=== PATIENT | male | born 1945 | race African-American/Black ===

== ENCOUNTER 2017-07-11 07:36 | Observation (INO) | payer MEDICARE ==
[~2017-07-11] VITALS: Ht 185.4 cm; Wt 89.8 kg
[~2017-07-11 07:36] MED LIST: ASPI-1159 PO; CARVEDILOL PO; LISI-604 PO; SIMV10TA6 PO
[2017-07-11 08:05] LABS: BASOPHILS % 0.6 % (0.0-2.0); EOSINOPHILS % 3.3 % (0.0-5.0); HEMATOCRIT. 44.6 % (42.0-52.0); HEMOGLOBIN. 15.4 g/dL (14.0-18.0); LYMPHOCYTES % 26.6 % (20.0-50.0); MEAN CORPUSCULAR HEMOGLOBIN 30.6 pg (28.0-32.0); MEAN CORPUSCULAR VOLUME 88.7 fL (80.0-94.0); MEAN PLATELET VOLUME 9.4 fl (7.4-10.4); MONOCYTES % 6.8 % (2.0-8.0); NEUTROPHILS % 62.7 % (40.0-76.0); PLATELET 184 x1000/uL (130-400); RED BLOOD CELL COUNT 5.02 mill/uL (4.7-6.1); RED CELL DISTRIBUTION WIDTH 13.5 % (11.6-14.6)
[2017-07-11 08:22] LABS: CARBON DIOXIDE 31 mEq/L (21-32); CHLORIDE 105 mEq/L (98-107); TROPONIN I < 0.02 ng/mL (0.00-0.04)
[2017-07-11] MEDS ORDERED: ASPIRIN 325MG EC TABLET PO ONE (09:00)
[2017-07-11 09:21] LABS: INR 1.1; PROTHROMBIN TIME 11.2 sec (9.4-11.6)
[2017-07-11 13:50] VITALS: BP 189/91
[2017-07-11] MEDS ORDERED: INFLUENZA VIRUS VACCINE 0.5ML SYR IM ONE (14:00)
[2017-07-11] MEDS ORDERED: CLONIDINE 0.1MG TABLET PO NR (14:45)
[2017-07-11] MEDS ORDERED: CLOPIDOGREL (15:03)
[2017-07-11 16:00] VITALS: BP 167/76
[2017-07-11 20:00] VITALS: BP 146/68
[2017-07-11] MEDS: ASPIRIN 325MG EC TABLET PO SCH (20:19)
[2017-07-11] MEDS: LOSARTAN POTASSIUM 50 MG TABLET PO SCH (20:19)
[2017-07-11] MEDS ORDERED: ATORVASTATIN CALCIUM 20MG TABLET PO SCH (21:00)
[2017-07-11] MEDS: CARVEDILOL 6.25 MG TABLET PO SCH (21:43)
[2017-07-11] MEDS: AMLODIPINE 5MG TABLET PO SCH (21:43)
[2017-07-12] VITALS: BP 130/78
[2017-07-12 04:00] VITALS: BP 121/55
[2017-07-12 07:20] LABS: BASOPHILS % 0.5 % (0.0-2.0); EOSINOPHILS % 4.8 % (0.0-5.0); HEMATOCRIT. 41.1 % (42.0-52.0); HEMOGLOBIN. 13.6 g/dL (14.0-18.0); MEAN CORPUSCULAR HEMOGLOBIN 29.4 pg (28.0-32.0); MEAN CORPUSCULAR VOLUME 88.5 fL (80.0-94.0); MEAN PLATELET VOLUME 9.5 fl (7.4-10.4); MONOCYTES % 11.2 % (2.0-8.0); NEUTROPHILS % 52.5 % (40.0-76.0); PLATELET 172 x1000/uL (130-400); RED BLOOD CELL COUNT 4.64 mill/uL (4.7-6.1); RED CELL DISTRIBUTION WIDTH 13.1 % (11.6-14.6)
[2017-07-12 08:00] VITALS: BP 129/61
[2017-07-12] MEDS ORDERED: ASPIRIN 81MG EC TABLET PO SCH (09:00)
[2017-07-12] MEDS ORDERED: CLOPIDOGREL 75MG TABLET PO SCH (09:00)
[2017-07-12] MEDS: CARVEDILOL 6.25 MG TABLET PO SCH (09:00)
[2017-07-12] MEDS: ASPIRIN 325MG EC TABLET PO SCH (09:14)
[2017-07-12] MEDS: AMLODIPINE 5MG TABLET PO SCH (09:14)
[2017-07-12] MEDS: LOSARTAN POTASSIUM 50 MG TABLET PO SCH (09:14)
[2017-07-12 10:28] LABS: CARBON DIOXIDE 27 mEq/L (21-32); CHLORIDE 105 mEq/L (98-107); LDL CHOLESTEROL 86 mg/dL (5-100)
[2017-07-12 10:38] LABS: HDL CHOLESTEROL 53 mg/dL (40-59); TROPONIN I < 0.02 ng/mL (0.00-0.04)
[2017-07-12 12:00] VITALS: BP 139/68
[2017-07-12 14:55] VITALS: BP 139/68
[2017-07-12] MEDS ORDERED: CARVEDILOL 3.125 MG TABLET PO SCH (21:00)
== END 2017-07-12 15:25 | disposition home or self-care (01) ==
LOC: ER 08:11 → INTOOBSV 09:01 → 8WST 09:01 → EDBEDREQTM 09:08 → EDBEDREQ 09:08 → ENRESERV 12:19
PROVIDERS: ADMIT Internal Medicine; ATTEND Internal Medicine
DX: G45.9 Transient cerebral ischemic attack, unspecified (principal); I16.0 Hypertensive urgency; I10 Essential (primary) hypertension; E78.00 Pure hypercholesterolemia, unspecified; I25.10 Atherosclerotic heart disease of native coronary artery without angina pectoris; Z23 Encounter for immunization
CPT/HCPCS: 36415; 70450; 70551; 71010; 80048; 80053; 80061; 83880; 84443; 84484; 85025; 85610; 90471; 93005; 93306; 93880; 99285; G0378; 90686

== ENCOUNTER 2019-01-30 14:26 | Emergency (ER) | payer MEDICARE ==
[~2019-01-30] VITALS: Ht 167.6 cm; Wt 110.0 kg
[~2019-01-30 14:26] MED LIST changes: -ASPI-1159 PO; +CLOPIDOGREL
[2019-01-30] MEDS ORDERED: METOCLOPRAMIDE HCL 10MG/2ML VIAL IV ONE (15:00)
[2019-01-30] MEDS ORDERED: CLONIDINE 0.2MG TABLET PO ONE (15:00)
[2019-01-30] MEDS ORDERED: DIPHENHYDRAMINE 50MG/ML VIAL IV ONE (15:00)
[2019-01-30 15:41] LABS: BASOPHILS % 0.5 % (0.0-2.0); EOSINOPHILS % 4.8 % (0.0-5.0); HEMATOCRIT. 45.3 % (42.0-52.0); HEMOGLOBIN. 14.8 g/dL (14.0-18.0); LYMPHOCYTES % 29.9 % (20.0-50.0); MEAN CORPUSCULAR HEMOGLOBIN 29.3 pg (28.0-32.0); MEAN CORPUSCULAR VOLUME 89.4 fL (80.0-94.0); MEAN PLATELET VOLUME 9.2 fl (7.4-10.4); MONOCYTES % 9.6 % (2.0-8.0); NEUTROPHILS % 55.2 % (40.0-76.0); PLATELET 196 x1000/uL (130-400); RED BLOOD CELL COUNT 5.06 mill/uL (4.7-6.1); RED CELL DISTRIBUTION WIDTH 12.7 % (11.6-14.6)
[2019-01-30 15:48] LABS: CHLORIDE 104 mEq/L (98-107)
[2019-01-30] MEDS ORDERED: HYDRALAZINE 20MG/ML VIAL IV ONE (16:45)
[2019-01-30 17:10] VITALS: BP 133/51
== END 2019-01-30 17:29 | disposition home or self-care (01) ==
LOC: ER 14:26
DX: I10 Essential (primary) hypertension (principal); R51 Headache; E78.00 Pure hypercholesterolemia, unspecified; I25.810 Atherosclerosis of coronary artery bypass graft(s) without angina pectoris; Z98.890 Other specified postprocedural states; Z95.1 Presence of aortocoronary bypass graft; Z79.899 Other long term (current) drug therapy
CPT/HCPCS: 36415; 70450; 71045; 80053; 84484; 85025; 93005; 96374; 96375; 99284; J0360; J1200; J2765

== ENCOUNTER 2019-01-30 21:46 | Emergency (ER) | payer MEDICARE ==
[~2019-01-30] VITALS: Ht 182.9 cm; Wt 107.0 kg
[2019-01-30] MEDS ORDERED: KETOROLAC 30MG/ML VIAL IV NR (22:22)
[2019-01-31 00:11] LABS: BASOPHILS % 0.5 % (0.0-2.0); EOSINOPHILS % 4.1 % (0.0-5.0); HEMATOCRIT. 41.9 % (42.0-52.0); HEMOGLOBIN. 14.4 g/dL (14.0-18.0); MEAN CORPUSCULAR HEMOGLOBIN 30.2 pg (28.0-32.0); MEAN CORPUSCULAR VOLUME 88.1 fL (80.0-94.0); MEAN PLATELET VOLUME 8.6 fl (7.4-10.4); NEUTROPHILS % 56.4 % (40.0-76.0); PLATELET 197 x1000/uL (130-400); RED BLOOD CELL COUNT 4.75 mill/uL (4.7-6.1); RED CELL DISTRIBUTION WIDTH 13.2 % (11.6-14.6)
[2019-01-31 00:17] LABS: CHLORIDE 106 mEq/L (98-107)
[2019-01-31 01:44] VITALS: BP 145/77
== END 2019-01-31 01:45 | disposition home or self-care (01) ==
LOC: ER 21:46
DX: R06.02 Shortness of breath (principal); R51 Headache; E78.00 Pure hypercholesterolemia, unspecified; I10 Essential (primary) hypertension; I25.810 Atherosclerosis of coronary artery bypass graft(s) without angina pectoris; Z79.899 Other long term (current) drug therapy; Z95.1 Presence of aortocoronary bypass graft
CPT/HCPCS: 36415; 83880; 84484; 93005; 99284

== ENCOUNTER 2021-12-16 12:34 | Inpatient (IN) | payer MEDICARE ==
[~2021-12-16] VITALS: Ht 180.3 cm; Wt 102.8 kg
[~2021-12-16 12:34] MED LIST changes: -LISI-604 PO; +LISI20TA31 PO; -SIMV10TA6 PO; +SIMV10TA97 PO
[2021-12-16] MEDS ORDERED: SODIUM CHLORIDE 0.9% 1,000 ML IV ONE (12:45)
[2021-12-16] MEDS ORDERED: ONDANSETRON HCL 4MG/2ML INJ IV ONE (12:45)
[2021-12-16 14:28] LABS: *AMPHETAMINES SCREEN URINE NEGATIVE (NEGATIVE); *BARBITURATES SCREEN URINE NEGATIVE (NEGATIVE); *BENZODIAZEPINES SCREEN URINE NEGATIVE (NEGATIVE); *COCAINE SCREEN URINE NEGATIVE (NEGATIVE); METHADONE URINE SCREEN NEGATIVE (NEGATIVE)
[2021-12-16 14:29] LABS: CANNABINOID URINE SCREEN NEGATIVE (NEGATIVE); OPIATES URINE SCREEN NEGATIVE (NEGATIVE); PHENCYCLIDINE URINE SCREEN NEGATIVE (NEGATIVE)
[2021-12-16 14:55] LABS: BASOPHILS % 0.5 % (0.0-2.0); EOSINOPHILS % 1.2 % (0.0-5.0); HEMATOCRIT. 42.9 % (42.0-52.0); HEMOGLOBIN. 14.1 g/dL (14.0-18.0); LYMPHOCYTES % 13.9 % (20.0-50.0); MEAN CORPUSCULAR HEMOGLOBIN 29.5 pg (28.0-32.0); MEAN CORPUSCULAR VOLUME 89.5 fL (80.0-94.0); MEAN PLATELET VOLUME 8.5 fl (7.4-10.4); MONOCYTES % 4.9 % (2.0-8.0); NEUTROPHILS % 79.5 % (40.0-76.0); PLATELET 214 x1000/uL (130-400); RED BLOOD CELL COUNT 4.79 mill/uL (4.7-6.1); RED CELL DISTRIBUTION WIDTH 13.4 % (11.6-14.6)
[2021-12-16 15:02] LABS: CHLORIDE 107 mEq/L (98-107)
[2021-12-16 15:06] LABS: ETHANOL BLOOD < 10 mg/dL
[2021-12-16 15:07] LABS: INR 1.1; PARTIAL THROMBOPLASTIN TIME 26.9 sec (23.4-31.0); PROTHROMBIN TIME 11.3 sec (9.6-11.0)
[2021-12-16] MEDS ORDERED: IOHEXOL-350 100 ML BOTTLE ONE (15:12)
[2021-12-16] MEDS ORDERED: NA PHOS,M-B/NA PHOS,DI-BA ENEMA 118ML PR PRN (15:15)
[2021-12-16] MEDS ORDERED: ACETAMINOPHEN 325MG TABLET PO PRN (15:15)
[2021-12-16] MEDS ORDERED: ACETAMINOPHEN 650MG SUPP PR PRN (15:15)
[2021-12-16] MEDS ORDERED: LORAZEPAM 0.5MG TABLET PO PRN (15:15)
[2021-12-16] MEDS ORDERED: GUAIFENESIN 200MG/10ML SUGAR FREE UDC PO PRN (15:15)
[2021-12-16] MEDS ORDERED: DOCUSATE SODIUM 100MG CAPSULE PO PRN (15:15)
[2021-12-16] MEDS ORDERED: MAGNESIUM/ALUMINUM HYDROXIDE/SIMETHICONE 30ML UDC PO PRN (15:15)
[2021-12-16] MEDS ORDERED: AMLODIPINE 5MG TABLET PO SCH (15:15)
[2021-12-16] MEDS ORDERED: HYDROCODONE/ACETAMINOPHEN 5/325MG TABLET PO PRN (15:15)
[2021-12-16] MEDS ORDERED: IPRATROPIUM/ALBUTEROL 0.5-3(2.5)MG/3ML NEB NEB PRN (15:15)
[2021-12-16] MEDS ORDERED: ASPIRIN 325MG EC TABLET PO ONE (15:30)
[2021-12-16] MEDS ORDERED: CLONIDINE 0.1MG TABLET PO PRN (18:00)
[2021-12-16] MEDS: ONDANSETRON HCL 4MG/2ML INJ IV PRN (19:23)
[2021-12-16] MEDS: LOSARTAN POTASSIUM 25 MG TABLET PO SCH (19:34)
[2021-12-16 21:35] VITALS: BP 175/66
[2021-12-16] MEDS: HYDRALAZINE 20MG/ML VIAL IV PRN (22:25)
[2021-12-16] MEDS: FAMOTIDINE 20MG TABLET PO SCH (22:25)
[2021-12-16] MEDS: ATORVASTATIN CALCIUM 10MG TABLET PO SCH (22:25)
[2021-12-17] VITALS: BP 155/78
[2021-12-17] MEDS: ONDANSETRON HCL 4MG/2ML INJ IV PRN (00:36)
[2021-12-17 00:56] LABS: CREATINE KINASE 166 IU/L (39-308)
[2021-12-17 00:57] LABS: CREATINE KINASE MB FRACTION < 1.0 ng/mL (0.5-3.6)
[2021-12-17] MEDS ORDERED: ONDANSETRON HCL 4MG/2ML INJ IV PRN (01:15)
[2021-12-17] MEDS ORDERED: ATROPINE SULFATE 1MG/10ML SYR IV ONE (01:15)
[2021-12-17] MEDS ORDERED: ATROPINE SULFATE 1MG/10ML SYR IV NR (01:30)
[2021-12-17] MEDS ORDERED: ATROPINE SULFATE 0.1MG/ML 10ML DISP.SYRIN IV ONE (01:30)
[2021-12-17] MEDS ORDERED: FURO-151 PO (02:42)
[2021-12-17] MEDS ORDERED: KETO15CR2 TP (02:42)
[2021-12-17] MEDS ORDERED: LISI20TA31 PO (02:42)
[2021-12-17] MEDS ORDERED: TAMS-11 PO (02:42)
[2021-12-17] MEDS ORDERED: AMLO5TAB88 PO (02:42)
[2021-12-17] MEDS ORDERED: DORZ10DR8 LEFTEYE (02:42)
[2021-12-17] MEDS ORDERED: SIMV-43 PO (02:42)
[2021-12-17] MEDS ORDERED: TERB250T51 PO (02:42)
[2021-12-17] MEDS ORDERED: MULT-622 PO (02:42)
[2021-12-17] MEDS ORDERED: CARV12.545 PO (02:42)
[2021-12-17] MEDS ORDERED: CHOL400D7 PO (02:42)
[2021-12-17] MEDS ORDERED: ASPI-1497 PO (02:42)
[2021-12-17] MEDS ORDERED: MYCOC15 TP (02:42)
[2021-12-17 04:00] VITALS: BP 147/70
[2021-12-17 07:48] LABS: BASOPHILS % 0.2 % (0.0-2.0); HEMATOCRIT. 42.8 % (42.0-52.0); HEMOGLOBIN. 14.3 g/dL (14.0-18.0); LYMPHOCYTES % 11.4 % (20.0-50.0); MEAN CORPUSCULAR HEMOGLOBIN 29.2 pg (28.0-32.0); MEAN CORPUSCULAR VOLUME 87.6 fL (80.0-94.0); MEAN PLATELET VOLUME 9.3 fl (7.4-10.4); MONOCYTES % 7.2 % (2.0-8.0); NEUTROPHILS % 81.2 % (40.0-76.0); PLATELET 229 x1000/uL (130-400); RED BLOOD CELL COUNT 4.88 mill/uL (4.7-6.1); RED CELL DISTRIBUTION WIDTH 13.5 % (11.6-14.6)
[2021-12-17 07:55] LABS: CHLORIDE 104 mEq/L (98-107)
[2021-12-17 08:16] LABS: CREATINE KINASE 152 IU/L (39-308)
[2021-12-17 08:48] LABS: CLARITY URINE CLEAR (CLEAR); COLOR URINE YELLOW (YELLOW); KETONES URINE NEGATIVE (NEGATIVE); LEUKOCYTE ESTERASE URINE NEGATIVE (NEGATIVE); NITRITE URINE NEGATIVE (NEGATIVE); OCCULT BLOOD URINE NEGATIVE (NEGATIVE); PH URINE 7.5 (4.5-8.0); PROTEIN URINE NEGATIVE (NEGATIVE); SPECIFIC GRAVITY URINE 1.041 (1.005-1.030); UROBILINOGEN URINE 0.2 E.U./dL (0.2-1.0)
[2021-12-17] MEDS: ASPIRIN 81MG EC TABLET PO SCH (09:58)
[2021-12-17] MEDS: LOSARTAN POTASSIUM 25 MG TABLET PO SCH (09:59)
[2021-12-17] MEDS: AMLODIPINE 5MG TABLET PO SCH ×2 (09:59→16:04)
[2021-12-17] MEDS ORDERED: POTASSIUM CHLORIDE 20MEQ TABLET SR PO SCH (10:00)
[2021-12-17 12:00] VITALS: BP 179/64
[2021-12-17] MEDS ORDERED: MECLIZINE 25MG TABLET PO PRN (13:30)
[2021-12-17] MEDS ORDERED: MECLIZINE 25MG TABLET PO SCH (14:00)
[2021-12-17 16:00] VITALS: BP 192/70
[2021-12-17 17:43] VITALS: BP_SYST 124; BP_SYST 86; BP_DIAS 55; BP_DIAS 78
[2021-12-17 20:00] VITALS: BP 171/62
[2021-12-17] MEDS: ATORVASTATIN CALCIUM 10MG TABLET PO SCH (21:11)
[2021-12-17] MEDS: FAMOTIDINE 20MG TABLET PO SCH (21:11)
[2021-12-17] MEDS: HYDRALAZINE 20MG/ML VIAL IV PRN (21:12)
[2021-12-18 05:03] VITALS: BP 156/67
[2021-12-18 06:09] LABS: BASOPHILS % 0.1 % (0.0-2.0); EOSINOPHILS % 0.2 % (0.0-5.0); HEMATOCRIT. 42.1 % (42.0-52.0); HEMOGLOBIN. 14.5 g/dL (14.0-18.0); LYMPHOCYTES % 7.6 % (20.0-50.0); MEAN CORPUSCULAR HEMOGLOBIN 29.8 pg (28.0-32.0); MEAN CORPUSCULAR VOLUME 86.7 fL (80.0-94.0); MONOCYTES % 7.4 % (2.0-8.0); NEUTROPHILS % 84.7 % (40.0-76.0); PLATELET 235 x1000/uL (130-400); RED BLOOD CELL COUNT 4.86 mill/uL (4.7-6.1); RED CELL DISTRIBUTION WIDTH 13.6 % (11.6-14.6)
[2021-12-18 08:00] VITALS: BP 122/66
[2021-12-18 08:18] LABS: CHLORIDE 104 mEq/L (98-107)
[2021-12-18 08:27] LABS: LDL CHOLESTEROL 89 mg/dL (5-100)
[2021-12-18 08:29] LABS: HDL CHOLESTEROL 60 mg/dL (40-59)
[2021-12-18] MEDS: ASPIRIN 81MG EC TABLET PO SCH (08:46)
[2021-12-18] MEDS: LOSARTAN POTASSIUM 25 MG TABLET PO SCH (08:46)
[2021-12-18] MEDS: AMLODIPINE 5MG TABLET PO SCH ×2 (08:46→17:00)
[2021-12-18 12:00] VITALS: BP 150/64
[2021-12-18 16:00] VITALS: BP_SYST 141; BP_SYST 145; BP_DIAS 61; BP_DIAS 65
[2021-12-18 20:00] VITALS: BP 134/74
[2021-12-18] MEDS: FAMOTIDINE 20MG TABLET PO SCH (20:05)
[2021-12-18] MEDS: ATORVASTATIN CALCIUM 10MG TABLET PO SCH (20:05)
[2021-12-19] VITALS: BP 172/83
[2021-12-19 04:00] VITALS: BP 173/84
[2021-12-19] MEDS: HYDRALAZINE 20MG/ML VIAL IV PRN (06:50)
[2021-12-19 08:00] VITALS: BP 149/56
[2021-12-19] MEDS: LOSARTAN POTASSIUM 25 MG TABLET PO SCH (09:13)
[2021-12-19] MEDS: AMLODIPINE 5MG TABLET PO SCH ×2 (09:13→18:11)
[2021-12-19] MEDS: ASPIRIN 81MG EC TABLET PO SCH (09:13)
[2021-12-19 12:00] VITALS: BP 144/67
[2021-12-19 12:49] LABS: HEMATOCRIT. 43.2 % (42.0-52.0); HEMOGLOBIN. 14.3 g/dL (14.0-18.0); MEAN CORPUSCULAR HEMOGLOBIN 28.8 pg (28.0-32.0); MEAN CORPUSCULAR VOLUME 86.9 fL (80.0-94.0); MEAN PLATELET VOLUME 8.9 fl (7.4-10.4); PLATELET 195 x1000/uL (130-400); RED BLOOD CELL COUNT 4.97 mill/uL (4.7-6.1); RED CELL DISTRIBUTION WIDTH 13.6 % (11.6-14.6)
[2021-12-19 12:57] LABS: CHLORIDE 102 mEq/L (98-107)
[2021-12-19 13:57] LABS: PLATELET ESTIMATE NORMAL
[2021-12-19] MEDS ORDERED: NALOXONE HCL 0.4MG/ML VIAL IV PRN (14:30)
[2021-12-19 16:00] VITALS: BP_SYST 145; BP_SYST 160; BP_DIAS 104; BP_DIAS 61
[2021-12-19] MEDS: SODIUM CHLORIDE 0.45% 1,000 ML IV SCH (18:08)
[2021-12-19 20:00] VITALS: BP 145/75
[2021-12-19] MEDS: ATORVASTATIN CALCIUM 10MG TABLET PO SCH (21:25)
[2021-12-19] MEDS: FAMOTIDINE 20MG TABLET PO SCH (21:25)
[2021-12-20] VITALS: BP 112/72
[2021-12-20 04:00] VITALS: BP 138/76
[2021-12-20] MEDS: SODIUM CHLORIDE 0.45% 1,000 ML IV SCH ×2 (06:03→17:10)
[2021-12-20 06:47] LABS: HEMATOCRIT. 41.8 % (42.0-52.0); HEMOGLOBIN. 13.7 g/dL (14.0-18.0); MEAN CORPUSCULAR VOLUME 88.3 fL (80.0-94.0); PLATELET 153 x1000/uL (130-400); RED BLOOD CELL COUNT 4.73 mill/uL (4.7-6.1); RED CELL DISTRIBUTION WIDTH 13.8 % (11.6-14.6)
[2021-12-20 08:00] VITALS: BP 127/72
[2021-12-20] MEDS: ASPIRIN 81MG EC TABLET PO SCH (09:41)
[2021-12-20] MEDS: AMLODIPINE 5MG TABLET PO SCH ×2 (09:41→18:12)
[2021-12-20] MEDS: LOSARTAN POTASSIUM 25 MG TABLET PO SCH (09:41)
[2021-12-20 12:00] VITALS: BP 124/67
[2021-12-20] MEDS ORDERED: CEFTRIAXONE 1 G PREMIX 50 ML IV SCH (12:45)
[2021-12-20] MEDS: CEFTRIAXONE 1,000 MG in DEXTROSE 5% WATER 50 ML IV SCH (14:41)
[2021-12-20 14:59] LABS: CLARITY URINE CLOUDY (CLEAR); COLOR URINE ORANGE (YELLOW); KETONES URINE NEGATIVE (NEGATIVE); LEUKOCYTE ESTERASE URINE 1+ (NEGATIVE); NITRITE URINE NEGATIVE (NEGATIVE); OCCULT BLOOD URINE 3+ (NEGATIVE); PROTEIN URINE 2+ (NEGATIVE); SPECIFIC GRAVITY URINE 1.019 (1.005-1.030)
[2021-12-20 16:00] VITALS: BP 118/72
[2021-12-20 18:36] LABS: BG BASE EXCESS -1.7 mmol/L (-2.0-2.0); BG CARBOXYHEMOGLOBIN 0.5 % (0.5-1.5); BG DEOXYHEMOGLOBIN 6.5 % (0.0-5.0); BG FRACTION INSPIRED OXYGEN 21; BG HCO3 ACT 22.4 mmol/L (22.0-26.0); BG METHEMOGLOBIN 0.2 % (0.0-1.5); BG OXYGEN SATURATION 93.5 % (92.0-98.5); BG OXYHEMOGLOBIN 92.8 % (94.0-97.0); BG PCO2 36.2 mmHg (35.0-45.0); BG PH 7.409 (7.350-7.450); BG PO2 68.1 mmHg (75.0-100.0); BG SAMPLE SITE RIGHT BRACHIAL; BG TOTAL HEMOGLOBIN 14.2 g/dL (12.0-18.0); BG VENT MODE ROOM AIR
[2021-12-20 18:42] LABS: PLATELET ESTIMATE NORMAL
[2021-12-20 20:00] VITALS: BP 129/63
[2021-12-20] MEDS ORDERED: ENOXAPARIN 100MG/ML SYR SUBCUT SCH (20:00)
[2021-12-20] MEDS: ATORVASTATIN CALCIUM 10MG TABLET PO SCH (21:59)
[2021-12-20] MEDS: FAMOTIDINE 20MG TABLET PO SCH (21:59)
[2021-12-21] VITALS (11 sets, daily range): BP systolic 135–166; BP diastolic 44–77
[2021-12-21] MEDS: SODIUM CHLORIDE 0.45% 1,000 ML IV SCH (05:31)
[2021-12-21 07:38] LABS: HEMATOCRIT. 39.9 % (42.0-52.0); HEMOGLOBIN. 13.3 g/dL (14.0-18.0); MEAN CORPUSCULAR HEMOGLOBIN 29.1 pg (28.0-32.0); MEAN PLATELET VOLUME 8.9 fl (7.4-10.4); PLATELET 140 x1000/uL (130-400); RED BLOOD CELL COUNT 4.58 mill/uL (4.7-6.1); RED CELL DISTRIBUTION WIDTH 13.8 % (11.6-14.6)
[2021-12-21] MEDS: ASPIRIN 81MG EC TABLET PO SCH (08:32)
[2021-12-21] MEDS: AMLODIPINE 5MG TABLET PO SCH ×2 (08:33→16:29)
[2021-12-21] MEDS ORDERED: FUROSEMIDE 40MG/4ML VIAL IVP SCH (09:15)
[2021-12-21 10:15] LABS: BG BASE EXCESS 0.5 mmol/L (-2.0-2.0); BG DEOXYHEMOGLOBIN 2.4 % (0.0-5.0); BG FRACTION INSPIRED OXYGEN 28; BG HCO3 ACT 25.5 mmol/L (22.0-26.0); BG METHEMOGLOBIN 0.4 % (0.0-1.5); BG OXYGEN SATURATION 97.6 % (92.0-98.5); BG OXYHEMOGLOBIN 96.2 % (94.0-97.0); BG PCO2 42.3 mmHg (35.0-45.0); BG PH 7.398 (7.350-7.450); BG PO2 100.8 mmHg (75.0-100.0); BG SAMPLE SITE RIGHT RADIAL; BG TOTAL HEMOGLOBIN 14.4 g/dL (12.0-18.0); BG VENT MODE NASAL CANNULA
[2021-12-21 11:27] LABS: HEMATOCRIT. 39.4 % (42.0-52.0); HEMOGLOBIN. 13.2 g/dL (14.0-18.0); MEAN CORPUSCULAR HEMOGLOBIN 29.1 pg (28.0-32.0); MEAN PLATELET VOLUME 8.8 fl (7.4-10.4); PLATELET 150 x1000/uL (130-400); RED BLOOD CELL COUNT 4.53 mill/uL (4.7-6.1); RED CELL DISTRIBUTION WIDTH 13.5 % (11.6-14.6)
[2021-12-21] MEDS ORDERED: POTASSIUM CHLORIDE 20MEQ TABLET SR PO NR (12:30)
[2021-12-21 12:56] LABS: PLATELET ESTIMATE NORMAL
[2021-12-21 13:07] LABS: PLATELET ESTIMATE NORMAL
[2021-12-21] MEDS ORDERED: LEVOFLOXACIN 500MG TABLET PO SCH (15:15)
[2021-12-21] MEDS: CEFTRIAXONE 1,000 MG in DEXTROSE 5% WATER 50 ML IV SCH (16:20)
[2021-12-21] MEDS: DEXT 5%/0.45% NACL 1000ML 1,000 ML IV SCH (16:21)
[2021-12-21] MEDS: FAMOTIDINE 20MG TABLET PO SCH (21:05)
[2021-12-21] MEDS: ATORVASTATIN CALCIUM 10MG TABLET PO SCH (21:05)
[2021-12-22] VITALS (14 sets, daily range): BP systolic 134–166; BP diastolic 55–86
[2021-12-22 06:33] LABS: HEMATOCRIT. 42.7 % (42.0-52.0); HEMOGLOBIN. 14.4 g/dL (14.0-18.0); MEAN CORPUSCULAR HEMOGLOBIN 29.5 pg (28.0-32.0); MEAN CORPUSCULAR VOLUME 87.4 fL (80.0-94.0); RED BLOOD CELL COUNT 4.89 mill/uL (4.7-6.1); RED CELL DISTRIBUTION WIDTH 13.6 % (11.6-14.6)
[2021-12-22 06:34] LABS: CHLORIDE 106 mEq/L (98-107)
[2021-12-22] MEDS: AMLODIPINE 5MG TABLET PO SCH ×2 (08:22→17:20)
[2021-12-22 09:53] LABS: PLATELET 159 x1000/uL (130-400)
[2021-12-22 09:58] LABS: PLATELET ESTIMATE NORMAL
[2021-12-22] MEDS: LEVOFLOXACIN 250MG TABLET PO SCH (10:58)
[2021-12-22] MEDS: CEFTRIAXONE 1,000 MG in DEXTROSE 5% WATER 50 ML IV SCH (14:07)
[2021-12-22] MEDS: DEXT 5%/0.45% NACL 1000ML 1,000 ML IV SCH (15:11)
[2021-12-22] MEDS: ENOXAPARIN 100MG/ML SYR SUBCUT SCH (17:19)
[2021-12-22] MEDS: CHLORPROMAZINE HCL 25 MG TABLET PO PRN (17:19)
[2021-12-22] MEDS: FAMOTIDINE 20MG TABLET PO SCH (21:48)
[2021-12-22] MEDS: ATORVASTATIN CALCIUM 10MG TABLET PO SCH (21:48)
[2021-12-23] VITALS (9 sets, daily range): BP systolic 138–182; BP diastolic 63–85
[2021-12-23] MEDS: CHLORPROMAZINE HCL 25 MG TABLET PO PRN ×2 (04:26→16:35)
[2021-12-23] MEDS: ENOXAPARIN 100MG/ML SYR SUBCUT SCH ×2 (05:10→18:03)
[2021-12-23 08:10] LABS: BASOPHILS % 0.2 % (0.0-2.0); EOSINOPHILS % 2.2 % (0.0-5.0); HEMATOCRIT. 40.9 % (42.0-52.0); HEMOGLOBIN. 13.3 g/dL (14.0-18.0); LYMPHOCYTES % 13.6 % (20.0-50.0); MEAN CORPUSCULAR HEMOGLOBIN 28.9 pg (28.0-32.0); MEAN PLATELET VOLUME 9.4 fl (7.4-10.4); MONOCYTES % 13.4 % (2.0-8.0); NEUTROPHILS % 70.6 % (40.0-76.0); PLATELET 145 x1000/uL (130-400); RED CELL DISTRIBUTION WIDTH 13.2 % (11.6-14.6)
[2021-12-23 08:16] LABS: CHLORIDE 105 mEq/L (98-107)
[2021-12-23] MEDS: AMLODIPINE 5MG TABLET PO SCH ×2 (09:06→18:03)
[2021-12-23] MEDS ORDERED: LOSARTAN POTASSIUM 25 MG TABLET PO SCH (09:15)
[2021-12-23] MEDS: LEVOFLOXACIN 250MG TABLET PO SCH (10:18)
[2021-12-23] MEDS ORDERED: LEVOFLOXACIN 500MG TABLET PO SCH (13:24)
[2021-12-23] MEDS: DEXT 5%/0.45% NACL 1000ML 1,000 ML IV SCH (15:21)
[2021-12-23] MEDS: CEFTRIAXONE 1,000 MG in DEXTROSE 5% WATER 50 ML IV SCH (15:21)
[2021-12-23] MEDS ORDERED: APIX5TAB PO (16:06)
[2021-12-23] MEDS ORDERED: LEVO500T89 MT (16:06)
[2021-12-23] MEDS: HYDRALAZINE 20MG/ML VIAL IV PRN (16:36)
[2021-12-23] MEDS: FAMOTIDINE 20MG TABLET PO SCH (21:55)
[2021-12-23] MEDS: ATORVASTATIN CALCIUM 10MG TABLET PO SCH (21:55)
== END 2021-12-23 23:59 | disposition home or self-care (01) | DRG 64 ==
LOC: ER 12:34 → ENRESERV 19:02 → 7EST 21:59 → 5EST 12-21 11:03
PROVIDERS: ADMIT Internal Medicine; ATTEND Internal Medicine
PROC: 4A10X4Z Monitoring of Central Nervous Electrical Activity, External Approach (ICD-10-PCS; principal; 2021-12-18)
DX: I63.9 Cerebral infarction, unspecified (principal); I50.23 Acute on chronic systolic (congestive) heart failure; T83.83XA Hemorrhage due to genitourinary prosthetic devices, implants and grafts, initial encounter; G81.91 Hemiplegia, unspecified affecting right dominant side; N17.9 Acute kidney failure, unspecified; E78.00 Pure hypercholesterolemia, unspecified; E78.5 Hyperlipidemia, unspecified; E87.6 Hypokalemia; I25.10 Atherosclerotic heart disease of native coronary artery without angina pectoris; I44.0 Atrioventricular block, first degree; R29.702 NIHSS score 2; R29.810 Facial weakness; R00.1 Bradycardia, unspecified; Y65.8 Other specified misadventures during surgical and medical care; R31.0 Gross hematuria; I11.0 Hypertensive heart disease with heart failure; G90.8 Other disorders of autonomic nervous system; D72.829 Elevated white blood cell count, unspecified; N40.1 Benign prostatic hyperplasia with lower urinary tract symptoms; I48.0 Paroxysmal atrial fibrillation; N32.89 Other specified disorders of bladder; M16.0 Bilateral primary osteoarthritis of hip; I25.2 Old myocardial infarction; Z86.73 Personal history of transient ischemic attack (TIA), and cerebral infarction without residual deficits; Z95.1 Presence of aortocoronary bypass graft; Z95.2 Presence of prosthetic heart valve; Y92.89 Other specified places as the place of occurrence of the external cause
CPT/HCPCS: 36415; 36600; 70496; 70498; 70544; 70547; 70551; 71045; 72192; 76770; 80048; 80053; 80061; 80305; 80320; 81003; 82140; 82375; 82550; 82553; 82805; 83036; 83735; 83880; 84145; 84153; 84443; 84484; 85025; 93005; 93306; 93880; 93970; 95816; 97162; 97166; 97530; 97535; 99291; A6261; C1893; J0360; J0461; J0696; J1650; J1940; J2405; J7030; J7060; J8597; Q0161; Q9967; G0103; G0480